=== PATIENT | male | born 1940 | race Caucasian/White ===

== ENCOUNTER 2016-07-16 18:23 | Observation (INO) | payer MEDICARE, BC ==
[2016-07-16 18:55] LABS: ALBUMIN 4.3 g/dL (3.5-5.0); ALKALINE PHOSPHATASE 66 U/L (38-126); ALT 39 U/L (21-72); AST 23 U/L (17-59); BILIRUBIN, DIRECT 0.5 mg/dL (0.0-0.4); BILIRUBIN, TOTAL 1.6 mg/dL (0.2-1.3); BLOOD UREA NITROGEN 30 mg/dL (9-20); CALCIUM 9.3 mg/dL (8.4-10.2); CHLORIDE 109 mmol/L (98-107); CREATININE 1.2 mg/dL (0.7-1.3); EST GLOMERULAR FILTRATION RATE > 60 mL/min; LIPASE 31 U/L (23-300); POTASSIUM 4.4 mmol/L (3.5-5.1); SODIUM 143 mmol/L (137-145); TOTAL PROTEIN 7.3 g/dL (6.3-8.2)
[2016-07-16] MEDS ORDERED: ONDANSETRON HCL 4 MG/2 ML VIAL ONE (18:57)
[2016-07-16 19:02] LABS: GLUCOSE 205 mg/dL (70-100)
[2016-07-16 19:14] LABS: HEMATOCRIT 57.1 % (42.0-54.0); HEMOGLOBIN 19.6 g/dL (14.0-18.0); MEAN CELL VOLUME 89.1 fL (80.0-100.0); MEAN CORPUS. HGB CONCENTRATION 34.3 g/dL (32.0-36.0); MEAN CORPUSCULAR HEMOGLOBIN 30.5 pg (29.0-35.0); MEAN PLATELET VOLUME 9.4 fL (7.4-10.4); PLATELET COUNT 131 X 10^3uL (130-440); RED BLOOD COUNT 6.41 X 10^6uL (4.20-6.10); RED CELL DISTRIBUTION WIDTH 13.6 % (11.5-14.5); WHITE BLOOD COUNT 9.3 X 10^3uL (3.9-10.7)
[2016-07-16 19:19] LABS: BAND% (Manual) 27 % (0.0-1.0); LYMPHOCYTE % (Manual) 1 % (20.0-40.0); MONOCYTE % (Manual) 4 % (2.0-10.0); NEUTROPHIL % (Manual) 68 % (54.0-75.0); PLATELET ESTIMATE ADEQUATE
[2016-07-16] MEDS ORDERED: IPRATROPIUM/ALBUTEROL 0.5/3 MG 3 ML AMPUL.NEB INHALATION ONE (19:46)
--- NOTE | 2016-07-16 21:45 | CT REPORT ---
HISTORY: Weakness, shortness of breath, and elevated D dimer. COMPARISON: None. TECHNIQUE: This examination was performed using automated exposure control, adjustment of mA or kV according to patient size, and/or use of iterative reconstruction technique. Contrast enhanced axial CT images of the chest were performed following the intravenous administration of 100 cc of Isovue-370. FINDINGS: The examination is limited due to motion artifact. Lungs: The lungs are hypoinflated. There is partial atelectasis in the lower lobes and minimal depen dent atelectasis in the upper lobes. There is a small ill-defined nodule in the anterior right upper lobe (image 24 series 5 and image 47 series 7) these measuring up to 5 mm in diameter. There are smal l calcified granulomas in both lungs. Trachea and bronchi: Patent with no evidence of bronchiectasis. Pleural space: No pleural effusion or pleural thickening. Kerri: No adenopathy or bronchovascular thickening. Mediastinum: No mass or adenopathy. Axilla: No adenopathy. Heart and great vessels: Normal. Limited images through the upper abdomen: Normal. Osseous structures: There are degenerative changes in the thoracic spine. There is fusion in the low er cervical spine which is incompletely imaged. There are degenerative changes involving the shoulder s. IMPRESSION: 1. Limited examination due to motion artifact. 2. Hypoventilatory changes with partial atelectasis in the lower lobes and minimal dependent atelect asis in the upper lobes. 3. Small right upper lobe pulmonary nodule. Recommend comparison with prior outside CT if available to document stability. Otherwise, recommend 6-12 month follow-up chest CT. The above findings were communicated to RUIZ LO MD at 07/16/2016 9:40 PM. Final Electronic Signature: This report was electronically signed by Chalo Pitts MD on 07/16/2016 9 :43 PM. jasvir /
[2016-07-16] MEDS ORDERED: HOME MEDICATION LIST NEEDED 1 EA EACH MISC ONE (22:10)
--- NOTE | 2016-07-16 23:16 | ER PHYSICIAN DOCUMENTATION ---
Physician Documentation [facility] Name:Kian Franz Age:76 yrs Sex:Male :1940 Arrival Date:07/16/2016 Time:18:23 Bed4 Private MD:Nitin Davies ED, Chris Disposition: 07/16/16 22:08 Admit ordered for Kyle Damon. Preliminary diagnosis are Dehydration, Gastroenteritis; Viral, Hypoxia - : 2nd to hypoventilation and Atalectasis, Dementia. - Bed requested for Medical/Surgical. - Condition is Fair. - Problem is new. - Symptoms have improved. 23 HR OBS Yes HPI: 07/16 18:30 This 76 yrs old Male presents to ER via Private Vehicle with complaints of cd General Weakness, diarrhea,vomiting, dehydration and decreased mental status. 18:30 The patient is a 76 yo male with Dementia who has had 2 - 3 bouts of diarrhea, multiple cd episodes of vomiting, has become dehydrated. She was brought to the ED by his and son. I helped him into a wheelchair, out of the car, he was pale, very weak with decreased alertness. His initial systolic BP was 116 in the ED. An IV was started and IV fluids of NS given as a bolus.. 18:35 Onset: The symptom(s)/episode began/occurred gradually, this morning. Severity of cd symptoms: At their worst the symptoms were severe in the emergency department the symptoms are unchanged. The patient has not experienced similar symptoms in the past. The patient has not recently seen a physician. 18:40 Patient denies chest pain, SOB, cough, high fever or chills, UTI symptoms, Abdominal cd pain, severe headache or flank pain. He has had no melena, hematochezia or hematemesis.. Historical: - Allergies: Requip; - Home Meds: 1. Namenda oral 2. Clonazepam Oral 3. gabapentin oral 4. Naproxen Oral 5. Diphenhydramine Oral - PMHx: KIDNEY STONES; generalized weakness; fatty liver; falls; neuropathy; DEMENTIA; restless legs; - PSHx: laminectomy; back and neck surgeries; - Tetanus: < 10 years. - Ebola Screening: : Patient negative for fever greater than or equal to 101.5 degrees Fahrenheit, and additional compatible Ebola Virus Disease symptoms. Patient denies exposure to infectious person. Patient denies travel to an Ebola-affected area in the 21 days before illness onset. No symptoms or risks identified at this time. . - Social history: Smoking status: Patient states was never smoker of tobacco. - Immunization history: Flu Vaccine < 1 year. ROS: 19:05 Back: Negative for injury, pain or muscle spasms. cd : Negative for injury, bleeding, discharge, swelling, dysuria, frequency or urgency. 19:05 MS/Extremity: Negative for injury, deformity, edema, calf tenderness, pain or coldness. cd 19:05 Constitutional: Positive for fatigue, malaise, poor PO intake, Negative for body aches, chills, fever. 19:05 Cardiovascular: Negative for chest pain, orthopnea, palpitations. 19:05 Respiratory: Negative for cough, hemoptysis, shortness of breath, sputum production, wheezing. 19:05 Abdomen/GI: Positive for nausea, vomiting, diarrhea, anorexia, Negative for abdominal pain, abdominal distension, hematemesis, black/tarry stool, rectal bleeding. 19:05 Skin: Positive for pallor. 19:05 Neuro: Positive for altered mental status, weakness, Negative for headache, loss of consciousness, speech changes, syncope, near syncope, visual changes. 19:05 All other systems are negative. Exam: Head/Face: Normocephalic, atraumatic. 19:15 Eyes: Pupils equal round and reactive to light, extra-ocular motions intact. Lids and cd lashes normal. Conjunctiva and sclera are non-icteric and not injected. Cornea within normal limits. Periorbital areas with no swelling, redness, or edema. Back: No spinal tenderness. No costovertebral tenderness. Full range of motion. 19:15 MS/ Extremity: Pulses equal, no cyanosis. Neurovascular intact. Full, normal range of motion. 19:15 Constitutional: The patient appears awake, non-diaphoretic, non-toxic, well developed, well nourished, lethargic, listless, obese, pale. 19:15 ENT: TM's: are normal, Mouth: Lips: dry, Oral mucosa: dry. 19:15 Neck: Exam negative for acute changes. 19:15 Cardiovascular: Rate: tachycardic, Rhythm: regular, Pulses: no pulse deficits are appreciated, Heart sounds: normal, Edema: is not appreciated. 19:15 Respiratory: the patient does not display signs of respiratory distress, Respirations: labored breathing, is not present, accessory muscle usage, is absent, intercostal retractions, are absent, shallow respirations, that is moderate, tachypnea, that is moderate, Breath sounds: rales, are not appreciated, rhonchi, are not appreciated, wheezing, is not appreciated, decreased breath sounds, that are moderate, are located in both bases. 19:15 Abdomen/GI: Inspection: abdomen appears normal, Bowel sounds: normal, active, Palpation: abdomen is soft and non-tender, mass, is not appreciated, rebound tenderness, is not appreciated, voluntary guarding, is not appreciated, involuntary guarding, is not appreciated, no appreciated organomegaly, Rectal exam: the exam is deferred, Indicators: McBurney's point is not tender, Aguirre's sign is negative. 19:15 Skin: Appearance: Color: pale. 19:15 Neuro: Orientation: unable to test, the patient has a history of dementia, Mentation: lucid, slow to respond, confused, Memory: unable to test, the patient has a history of dementia, Cranial nerves: CN II- XII are normal as tested, Motor: moves all fours, Sensation: unable to test, the patient has a history of dementia, Gait: not tested. Vital Signs: 18:35 Temp 98.8(O); tg 18:35 BP 116 / 82; Pulse 94; Resp 32; Pulse Ox 93% on 3 lpm NC; Weight 81.65 kg (R); Height 5 tg ft. 8 in. (172.72 cm) (R); Pain 3/10; 19:12 BP 106 / 69; Pulse 102; Pulse Ox 88% on NC; ma 19:55 BP 111 / 72; Pulse 100; Resp 24; Pulse Ox 91% on 3 lpm NC; Pain 0/10; rs 18:35 Body Mass Index 27.37 (81.65 kg, 172.72 cm) tg 18:35 pain in head and shoulders tg Onsted Coma Score: 19:15 Eye Response: spontaneous(4). Verbal Response: confused(4). Motor Response: obeys cd commands(6). Total: 14. MDM: 18:35 Data interpreted: Pulse oximetry: on room air is 86 %. Interpretation: hypoxia. Plan: cd O2 by NC applied. 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 18:36 Patient medically screened. cd 18:50 Differential Diagnosis altered mental status, sepsis, flu, Severe Dehydration, UTI, cd Gastroenteritis. 19:08 ECG:. Response to treatment: the patient's symptoms have markedly improved after cd treatment, the patient's condition has returned to base line, patient is well hydrated. and as a result, I will admit patient, Patient's CTA of the Chest revealed bibasilar atelectasis, No PE's, RUL nodule (there on a previous CT scan of 07/03/2008, no infiltrates. Physician consultation: Kyle Damon MD was called at 21:45, was contacted at 21:45, regarding admission, to the floor, consult, patient's condition, and will see patient in inpatient room, tomorrow. Admission orders: after a detailed discussion of the patient's condition and case, the admit orders are written by me. 19:15 Data reviewed: vital signs, nurses notes, old medical records, EKG, radiologic studies, cd plain films, and as a result, I will continue to observe the patient, administer IV fluids, NS bolus, NS maintenence, Oxygen and Zofran for nausea. 21:45 Counseling: I had a detailed discussion with the patient and/or guardian regarding: the cd historical points, exam findings, and any diagnostic results supporting the discharge/admit diagnosis, lab results, radiology results, the need for further work-up and treatment in the hospital. 07/17 03:16 EKG attached ma 07/16 19:13 Order name: BASIC METABOLIC PANEL; Complete Time: 19:31 EDMS 07/16 19:30 Interpretation: Normal Except: CARBON DIOXIDE 19; GLUCOSE 205; BLOOD UREA NITROGEN 30; cd Metabolic Acidosis, Hyperglycemia, Dehydration. 07/16 19:13 Order name: HEPATIC PANEL; Complete Time: 19:31 EDMS 07/16 19:30 Interpretation: Normal Except: BILIRUBIN, TOTAL 1.6; BILIRUBIN, DIRECT 0.5. cd 07/16 19:13 Order name: LIPASE; Complete Time: 19:31 EDMS 07/16 19:30 Interpretation: Normal. cd 07/16 19:15 Order name: CBC W/ MANUAL DIFFERENTIAL; Complete Time: 19:31 EDMS 07/16 19:31 Interpretation: Normal Except: HEMOGLOBIN 19.6; HEMATOCRIT 57.1; BAND% (Manual) 27; cd Polcythemia, Dehydration, Bandemia. 07/16 20:08 Order name: DDIMER; Complete Time: 20:14 EDMS 07/16 20:14 Interpretation: Abnormal: DDIMER 490; Elevated. cd 07/16 21:46 Order name: CAT SCAN; CHEST ANGIO 60155; Complete Time: 10:47 EDMS 07/16 18:37 Order name: EKG - 12 Lead; Complete Time: 19:03 cd 07/16 18:40 Order name: FSBS; Complete Time: 18:41 tg EC/18 19:08 Rate is 101 beats/min. Rhythm is regular. [place] interval is normal. QRS interval is cd normal. QT interval is normal. Q waves are Present in leads III, aVF. T waves are Normal. No ST changes noted. Clinical impression: Anterior NV - age indeterminate, Inferior NV - age indeterminate, and Poor Anterior R-wave Progression. Interpreted by me. Dispensed Medications: 18:34 Drug: NS 0.9% 1000 ml; Route: IV; Rate: bolus; Site: left forearm; Delivery: [place] tg Tubing; 18:59 Follow up: IV Status: Completed infusion; IV Intake: 1000ml tg 18:52 Drug: Zofran 4 mg; Route: IVP; Infused Over: 2 mins; Site: left forearm; tg 18:59 Follow up: Response: No adverse reaction; Nausea is decreased tg 20:00 Drug: DuoNeb (Albuterol 2.5 mg, Atrovent 0.5 mg); 3 ml; Route: Nebulizer; Infused Over: rs 8 mins; 20:00 Drug: NS 0.9% 1000 ml; Volume: 1000 ml; Route: IV; Rate: 1000 bolus; Site: left wrist; rs Delivery: [place]on Tubing; Point of Care Testing: Blood Glucose: 18:43 Blood Glucose: 215 mg/dL; tg Ranges: Critical Glucose Levels:Adult <50 mg/dl or >400 mg/dl <40 mg/dl or >180 mg/dl Signatures: Justus Roy RN RN tg Yuliya Nur RN RN rs Allison Hopkins RN RN ma Daley, Chris, MD MABRY cd
--- NOTE | 2016-07-16 23:16 | ER NURSING DOCUMENTATION ---
Nurse's Notes [facility] Name:Kian Franz Age:76 yrs Sex:Male :1940 Arrival Date:07/16/2016 Time:18:23 Bed4 Private MD:Nitin Davies Diagnosis:Dehydration;Gastroenteritis; Viral;Hypoxia-: 2nd to hypoventilation and Atalectasis;Dementia Presentation: 07/16 18:25 Acuity: JAXON 2 tg 18:45 Presenting complaint: Patient states: Weak, dizzy, N/V/D. Transition of care: patient tg was not received from another setting of care. 18:45 Method Of Arrival: Private Vehicle tg 20:12 Notified ED Physician of D dimer 490. rs Triage Assessment: 18:41 General: Appears ill, Behavior is cooperative. Pain: Complains of pain in "head and tg shoulders. Neuro: Level of Consciousness is lethargic, Oriented to person, place, Weakness Gait is unsteady, Speech Reports dizziness, weakness. Cardiovascular: Capillary refill < 3 seconds. Respiratory: Airway is patent Respiratory effort is even, unlabored. GI: Reports diarrhea, nausea, vomiting. Derm: Skin is dry, Skin is pale, Skin temperature is warm. Historical: - Allergies: Requip; - Home Meds: 1. Namenda oral 2. Clonazepam Oral 3. gabapentin oral 4. Naproxen Oral 5. Diphenhydramine Oral - PMHx: KIDNEY STONES; generalized weakness; fatty liver; falls; neuropathy; DEMENTIA; restless legs; - PSHx: laminectomy; back and neck surgeries; - Tetanus: < 10 years. - Ebola Screening: : Patient negative for fever greater than or equal to 101.5 degrees Fahrenheit, and additional compatible Ebola Virus Disease symptoms. Patient denies exposure to infectious person. Patient denies travel to an Ebola-affected area in the 21 days before illness onset. No symptoms or risks identified at this time. . - Social history: Smoking status: Patient states was never smoker of tobacco. - Immunization history: Flu Vaccine < 1 year. Screenin:43 Infectious Disease Risk Unable to Obtain. Abuse screen: Denies threats or abuse. Denies tg injuries from another. Nutritional screening: No deficits noted. Vital Signs: 18:35 Temp 98.8(O); tg 18:35 BP 116 / 82; Pulse 94; Resp 32; Pulse Ox 93% on 3 lpm NC; Weight 81.65 kg (R); Height 5 tg ft. 8 in. (172.72 cm) (R); Pain 3/10; 19:12 BP 106 / 69; Pulse 102; Pulse Ox 88% on NC; ma 19:55 BP 111 / 72; Pulse 100; Resp 24; Pulse Ox 91% on 3 lpm NC; Pain 0/10; rs 18:35 Body Mass Index 27.37 (81.65 kg, 172.72 cm) tg 18:35 pain in head and shoulders tg Kristine Coma Score: 19:15 Eye Response: spontaneous(4). Verbal Response: confused(4). Motor Response: obeys cd commands(6). Total: 14. ED Course: 18:24 Patient arrived in ED. ama 18:24 Nitin Davies MD is Private Physician. ama 18:25 Justus Roy RN is Primary Nurse. tg 18:25 Triage completed. tg 18:35 Inserted peripheral IV: 20 gauge in left forearm and blood collected. Oxygen Oxygen tg administration via nasal cannula @ 3L/min. 18:36 Vicente García MD is Attending Physician. cd 18:43 Arm band placed on Bed in low position Call Light in Reach Gowned Side rails up x2. tg Family accompanied patient. 18:45 Valuables Remains with patient. Pulse Ox - RN Monitoring Only. tg 18:56 Port Xray Completed. pm1 19:06 Report given to NICHOLAS Feliz. tg 20:[address] pm1 21:[address]. pm1 22:07 Kyle Damon MD is Admitting Physician. cd 03 03:16 EKG attached ma Administered Medications: 18 18:34 Drug: NS 0.9% 1000 ml; Route: IV; Rate: bolus; Site: left forearm; Delivery: [place] tg Tubing; 18:59 Follow up: IV Status: Completed infusion; IV Intake: 1000ml tg 18:52 Drug: Zofran 4 mg; Route: IVP; Infused Over: 2 mins; Site: left forearm; tg 18:59 Follow up: Response: No adverse reaction; Nausea is decreased tg 20:00 Drug: DuoNeb (Albuterol 2.5 mg, Atrovent 0.5 mg); 3 ml; Route: Nebulizer; Infused Over: rs 8 mins; 20:00 Drug: NS 0.9% 1000 ml; Volume: 1000 ml; Route: IV; Rate: 1000 bolus; Site: left wrist; rs Delivery: [place] Tubing; Point of Care Testing: Blood Glucose: 18:43 Blood Glucose: 215 mg/dL; tg Ranges: Intake: 18:59 IV: 1000ml; Total: 1000ml. tg Outcome: 21:57 Instructed on Incentive Spirometer fc 22:08 Decision to Admit by Provider. cd 23:14 Admitted to Med/surg ma 23:14 Condition: unchanged 23:14 Report given to Report given to tree chipper by Dr García PT not seen by this RN 23:15 Patient left the ED. dang Signatures: Justus Roy RN RN tg Stalker, Rachael, NICHOLAS RN rs Allison Hopkins RN RN Vicente Corrigan MD MD cd McBride, Philisha pm1 Bijan Sanches, kathy Childress
[2016-07-16] MEDS: NORMAL SALINE 1,000 ML IV SCH (23:20)
[2016-07-16] MEDS: IPRATROPIUM/ALBUTEROL 0.5/3 MG 3 ML AMPUL.NEB INHALATION SCH (23:20)
[2016-07-16] MEDS ORDERED: O2 HUMIDIFIER 650 ML BOTTLE INHALATION ONE (23:41)
[2016-07-17 01:06] LABS: URINE APPEARANCE CLEAR; URINE COLOR YELLOW; URINE GLUCOSE NORMAL (NEGATIVE); URINE LEUKOCYTE ESTERASE NEGATIVE (NEGATIVE); URINE NITRITE NEGATIVE (NEGATIVE); URINE PROTEIN NEGATIVE (NEG - TRACE); URINE SPECIFIC GRAVITY 1.015 (0.001-1.035)
[2016-07-17 01:07] LABS: URINE BILIRUBIN NEGATIVE (NEGATIVE); URINE BLOOD 50 Ery/uL (2+) (NEGATIVE); URINE KETONE 10mg/dL (1+) (NEGATIVE); URINE UROBILINOGEN 0.2mg/dL (Normal) (NEG-1mg/dL)
[2016-07-17 01:11] LABS: URINE WBC 0-4/hpf (0-4/hpf)
[2016-07-17 01:12] LABS: URINE BACTERIA <10 ORGANISMS/hpf (<10/hpf); URINE MUCUS UP TO 25%/lpf (Up to 25%); URINE SQUAMOUS EPITHELIAL CELL 0-5/hpf (<= 15/hpf)
[2016-07-17] MEDS: ACETAMINOPHEN 325 MG TABLET PO PRN ×3 (02:17→16:53)
[2016-07-17] MEDS: IPRATROPIUM/ALBUTEROL 0.5/3 MG 3 ML AMPUL.NEB INHALATION SCH ×4 (05:42→22:11)
[2016-07-17 07:22] LABS: BLOOD UREA NITROGEN 31 mg/dL (9-20); CALCIUM 7.8 mg/dL (8.4-10.2); CHLORIDE 108 mmol/L (98-107); CREATININE 1.1 mg/dL (0.7-1.3); EST GLOMERULAR FILTRATION RATE > 60 mL/min; GLUCOSE 131 mg/dL (70-100); POTASSIUM 3.9 mmol/L (3.5-5.1); SODIUM 139 mmol/L (137-145)
[2016-07-17 07:41] LABS: HEMOGLOBIN 17.1 g/dL (14.0-18.0); MEAN CELL VOLUME 89.2 fL (80.0-100.0); MEAN CORPUS. HGB CONCENTRATION 33.6 g/dL (32.0-36.0); MEAN PLATELET VOLUME 9.4 fL (7.4-10.4); PLATELET COUNT 125 X 10^3uL (130-440); RED BLOOD COUNT 5.72 X 10^6uL (4.20-6.10); RED CELL DISTRIBUTION WIDTH 13.9 % (11.5-14.5); WHITE BLOOD COUNT 6.8 X 10^3uL (3.9-10.7)
[2016-07-17 07:42] LABS: BAND% (Manual) 26 % (0.0-1.0); LYMPHOCYTE % (Manual) 3 % (20.0-40.0); MONOCYTE % (Manual) 3 % (2.0-10.0); NEUTROPHIL % (Manual) 68 % (54.0-75.0); PLATELET ESTIMATE DECREASED
[2016-07-17] MEDS ORDERED: NAPROXEN 250 MG TABLET PO PRN (10:06)
[2016-07-17] MEDS: GABAPENTIN 300 MG CAPSULE PO SCH ×2 (10:55→21:57)
[2016-07-17] MEDS: AMPICILLIN/SULBACTAM 1.5 GM in NORMAL SALINE MINI-BAG+ 100 ML IV SCH ×3 (10:55→21:58)
[2016-07-17] MEDS: ONDANSETRON ODT 4 MG TAB.RAPDIS PO PRN (10:55)
[2016-07-17] MEDS ORDERED: NORMAL SALINE 1,000 ML IV SCH (11:00)
[2016-07-17] MEDS ORDERED: POLYVINYL ALCOHOL 1.4% OPHTH 75 DROP/15 ML BTL OPHTHALMIC PRN (11:55)
[2016-07-17] MEDS: NORMAL SALINE 1,000 ML IV SCH ×2 (12:04→23:46)
[2016-07-17] MEDS ORDERED: PHENOL SPRAY 1 SPRAY/ML BTL MUCOUS MEM PRN (16:43)
--- NOTE | 2016-07-17 18:42 | HISTORY & PHYSICAL ---
DATE OF ADMISSION: 07/16/16 ATTENDING PHYSICIAN: Kyle Damon MD ADMITTING PHYSICIAN: Aditya García MD PRIMARY CARE PHYSICIAN: Nitin Davies MD (Patient does have follow up on Monday of this week with Dr. Davies). HISTORY OF PRESENT ILLNESS: The patient is a 76-year-old gentleman with significant orthopedic past history as well as recent diagnosis of dementia with some aggression. He has a history of sleep apnea with nocturnal hypoxemia and was to use oxygen at night, though intermittently declines, as well as a history of melanoma and prior kidney stones. It was noted previously on colonoscopy, that he did have diverticular disease. He presents on this occasion with acute onset of vomiting, initially food that he had eaten and then subsequently a caramel-colored emesis every 10-15 minutes. He then developed vague abdominal discomfort, and then perfuse diarrhea but without blood or mucous. He also complained of fever and headache and was seen in the Emergency Room. In the Emergency Room, they noted he was tachycardic and hypoxic , and started nebulizers and oxygen with improvement in his oxygenation, but his tummy pain persisted as well as some nausea and no further emesis. This morning, he was able to tolerate some breakfast, but notes feeling very queasy and nauseated after eating. He has had no cough, cold, congestion. No paroxysmal nocturnal dyspnea. No orthopnea. He has had no dysuria or urinary frequency. No sore throat. He has a frontal headache and improves after Tylenol. No change in vision though has had prior cervical diskectomies and fusion therapies. He has not had nuchal rigidity. There is no chest pain or palpitations. In the Emergency Room, his initial white count was 9.3, hemoglobin 19.6, with an MCV of 89 and a platelet count of 131. He had 27% bands and 68% neutrophils. This morning a repeat CBC shows white count of 6.8 and platelet count of 125 with hemoglobin of 17.1. The differential largely remains 68% neutrophils with 26% bands. Chemistries show BUN of 31 with creatinine of 1.1, glucose of 131 and calcium of 7.8. Remainder of electrolytes are within normal limits. Urinalysis showed ketones and blood but no white cells and leukocyte esterase was negative. A D-dimer was elevated at 490 but age corrected is appropriate. CT thorax has been obtained and showed limited examination due to patients movement with atelectasis in the lower lobes, a small right upper lobe pulmonary nodule as well. PAST MEDICAL HISTORY 1. Prior aspiration. Patient required a PEG tube for 1 year which was removed in 2012. 2. Dementia with aggression. Most recent Mini-Mental Status Exam was in 06/2016. 3. Elevated uric acid, query gout. 4. Fatty liver. 5. Gait instability. 6. Prior H. pylori infection. 7. Persistent hematuria after history of nephrolithiasis and lithotripsy. 8. Melanoma of his left forearm. 9. Bilateral lower extremity neuropathy, felt related to cervical and lumbar radiculopathy. 10. Restless leg syndrome, intolerant to Requip. 11. Untreated sleep apnea. PAST SURGICAL HISTORY 1. C3-C4 diskectomy with right leg paresthesia. 2. C3-C6 cervical fusion [address] Venegas. 3. Lumbar spinal stenosis surgery [place] [address] Venegas L2-L4. 4. An L2 laminectomy. 5. Prior open reduction, internal fixation of left clavicle. 6. Tonsillectomy. ALLERGIES: Allergic to Requip. FAMILY HISTORY: He was adopted. He had a father, brother and mother that suffered from alcoholism. SOCIAL HISTORY: He drinks rarely. He is and has 3 children. 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 Interestingly, he had done his undergraduate at [employer] and is still an avid basketball fan. He had done Masters level work in Divinity with a Theology degree from [employer] prior to pursuing a PhD in Philosophy at the [employer]. During his time in [place], his parents and brother were involved in a car accident and . 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 REVIEW OF SYSTEMS: Per history of present illness. MEDICATIONS Aspirin 81 mg daily. Klonopin 1 mg daily as needed, usually at night. Gabapentin 900 mg twice daily. Namenda XR titration pack currently on 14 mg daily. Naproxen sodium 220 mg daily. PHYSICAL EXAMINATION VITAL SIGNS: His temperatures have ranged 36.9-37.3 since admission with blood pressure in the 90-110/50-60 diastolic range. Heart rate 90s-low 100s with respiratory rate of 16-24. He has been saturating 90-95% on 2-4 liters by nasal cannula. His pain intensity overall is 4-5/10 and predominantly spinal related, although he also has left lower quadrant pain. GENERAL: He is pleasant, somewhat blunted affected. Does smile intermittently. There is no jaundice. No anemia, cyanosis, clubbing or lymphadenopathy appreciated. There are no neck masses. HEENT: Oropharynx is still tacky. CARDIAC: S1, S2 without murmur, though somewhat accentuated pulmonic component in left upper sternal border as well as right upper sternal border, but no radiation or murmurs are appreciated. RESPIRATORY: Air entry to the bases and slightly prolonged expiratory phase, but no polyphonic wheezing noted. ABDOMEN: Generalized distended. Bowel sounds are active. He has no masses over the liver, spleen or kidneys and no costovertebral angle tenderness. He does have guarding over the left lower quadrant and suprapubic region with slight increase for rebound assessment in left lower quadrant but no Rovsing sign. LABORATORY DATA: As above. ASSESSMENT 1. Nausea, vomiting, abdominal pain and diarrhea. This likely represents gastroenteritis and possible food-borne illness but with left lower quadrant tenderness, guarding and mild rebound as we as increase bands on examination and prior colonoscopy with diverticulosis. I do have concerns for diverticulitis. Will start empiric Unasyn with likely transition to Augmentin as an outpatient and more maria c increase in foods. Patient notes after breakfast this morning, marked increase in nausea with no further emesis. I have also requested Zofran for nausea and will consider stool studies with fecal leukocytes and cultures as recent outbreak of Campylobacter locally in [place] as well as recent Listeria from [employer] cheeses noted. 2. Chronic pain. Will continue patient's home iteration of home medications, which markedly attenuate his discomfort from both his cervical and lumbar radiculopathies. 3. Dementia. 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 Will continue his Namenda. His has been present and may help reorient him. 4. Obesity hypoventilation with nocturnal hypoxemia. Have encouraged use of oxygen as this likely will improve his mentation as well. 5. Patient is a full code. Will recommend that he receive fluids and antibiotics as well as advance diet today with likely discharge tomorrow. This will allow us to recheck labs in the morning as well as check stool studies. Patient may warrant postvoid residual and possible repeat urinalysis, though the bulk of his pain is left lower quadrant and with concomitant change in vomiting and bowel movements, may represent diverticular disease. MTDD
[2016-07-17] MEDS: clonazePAM 1 MG TABLET PO SCH (21:57)
[2016-07-17] MEDS: [UNRECOGNIZED DRUG - REMARK] PO SCH (21:57)
[2016-07-18] MEDS: AMPICILLIN/SULBACTAM 1.5 GM in NORMAL SALINE MINI-BAG+ 100 ML IV SCH ×4 (03:49→23:01)
[2016-07-18] MEDS: IPRATROPIUM/ALBUTEROL 0.5/3 MG 3 ML AMPUL.NEB INHALATION SCH (05:16)
[2016-07-18] MEDS: GABAPENTIN 300 MG CAPSULE PO SCH ×2 (08:36→20:40)
[2016-07-18] MEDS ORDERED: ACETAMINOPHEN 325 MG TABLET PO ONE (08:45)
[2016-07-18 09:41] LABS: BASOPHILS 0.1 % (0.0-2.0); EOSINOPHILS 1.4 % (0.0-6.0); EOSINOPHILS# 0.1 X 10^3uL (0.0-0.4); HEMATOCRIT 49.1 % (42.0-54.0); HEMOGLOBIN 16.7 g/dL (14.0-18.0); LYMPHOCYTES# 0.8 X 10^3uL (0.8-3.8); MEAN CELL VOLUME 89.5 fL (80.0-100.0); MEAN CORPUSCULAR HEMOGLOBIN 30.5 pg (29.0-35.0); MEAN PLATELET VOLUME 9.1 fL (7.4-10.4); MONOCYTES 13.9 % (2.0-10.0); MONOCYTES# 0.6 X 10^3uL (0.2-1.0); NEUTROPHILS 66.6 % (54.0-75.0); PLATELET COUNT 102 X 10^3uL (130-440); RED BLOOD COUNT 5.48 X 10^6uL (4.20-6.10); RED CELL DISTRIBUTION WIDTH 14.1 % (11.5-14.5); WHITE BLOOD COUNT 4.5 X 10^3uL (3.9-10.7)
--- NOTE | 2016-07-18 09:45 | PROGRESS NOTE: IM APSO ---
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 Elements of disorientation, confusion, etc. Pt has no recall why he is in hospital, that he had diarrhea. Confabulates. Spoke with who feels that he will do better in the home setting. Feels safe still in home with patient. 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 has resources if she does not feel safe. We will need to consider Alzheimers lockdown unit if worsens. Cardiovascular: no chest pain Respiratory: no SOB Gastrointestinal: no abdominal pain, no nausea, no vomiting, no diarrhea IM: PN Objective Exam - I&O/Vital Signs I&O: Intake & Output 07/17/16 07/18/16 07/18/16 21:59 05:59 13:59 Intake Total 680 Output Total 475 Balance 205 Intake: Oral 680 Output: Urine 475 Other: Urine Appearance Clear Clear Urine Color Light Liana Light Liana Voiding Method Toilet Toilet # Voids 5 Vital Signs: Last Vital Signs Temp 37.0 C 07/17/16 23:00 Pulse 94 H 07/17/16 23:00 Resp 20 07/18/16 09:00 BP 121/64 07/17/16 23:00 Pulse Ox 92 07/18/16 09:04 Oxygen Flow Rate 3 Oxygen Delivery Method Room Air - Respiratory Respiratory exam: Present: clear - Cardiovascular Cardiovascular exam: Present: RRR. Absent: systolic murmur - GI/Abdominal GI/Abdominal exam: Present: normal bowel sounds, soft. Absent: organomegaly, tenderness - Extremities Exam Extremities exam: Absent: edema - Lab Labs: Laboratory Last Values WBC 6.8 X 10^3uL (3.9-10.7) 07/17/16 06:40 RBC 5.72 X 10^6uL (4.20-6.10) 07/17/16 06:40 Hgb 17.1 g/dL (14.0-18.0) 07/17/16 06:40 Hct 51.0 % (42.0-54.0) 07/17/16 06:40 MCV 89.2 fL (80.0-100.0) 07/17/16 06:40 MCH 30.0 pg (29.0-35.0) 07/17/16 06:40 MCHC 33.6 g/dL (32.0-36.0) 07/17/16 06:40 RDW 13.9 % (11.5-14.5) 07/17/16 06:40 Plt Count 125 X 10^3uL (130-440) L 07/17/16 06:40 MPV 9.4 fL (7.4-10.4) 07/17/16 06:40 Total Counted 100 07/17/16 06:40 Neutrophils % Cancelled 07/16/16 18:30 Neutrophils % (Manual) 68 % (54.0-75.0) 07/17/16 06:40 Band Neuts % (Manual) 26 % (0.0-1.0) H 07/17/16 06:40 Lymphocytes % Cancelled 07/16/16 18:30 Lymphocytes % (Manual) 3 % (20.0-40.0) L 07/17/16 06:40 Monocytes % (Manual) 3 % (2.0-10.0) 07/17/16 06:40 Eosinophils % Cancelled 07/16/16 18:30 Basophils % Cancelled 07/16/16 18:30 Neutrophils # Cancelled 07/16/16 18:30 Lymphocytes # Cancelled 07/16/16 18:30 Monocytes Cancelled 07/16/16 18:30 Monocytes # Cancelled 07/16/16 18:30 Eosinophils # Cancelled 07/16/16 18:30 Basophils # Cancelled 07/16/16 18:30 Platelet Estimate Decreased 07/17/16 06:40 D-Dimer 490 ng/mL H* 07/16/16 18:30 Sodium 139 mmol/L (137-145) 07/17/16 06:40 Potassium 3.9 mmol/L (3.5-5.1) 07/17/16 06:40 Chloride 108 mmol/L (98-107) H 07/17/16 06:40 Carbon Dioxide 22 mmol/L (22-30) 07/17/16 06:40 BUN 31 mg/dL (9-20) H 07/17/16 06:40 Creatinine 1.1 mg/dL (0.7-1.3) 07/17/16 06:40 GFR Calculation > 60 mL/min 07/17/16 06:40 Glucose 131 mg/dL (70-100) H 07/17/16 06:40 Calcium 7.8 mg/dL (8.4-10.2) L 07/17/16 06:40 Total Bilirubin 1.6 mg/dL (0.2-1.3) H 07/16/16 18:30 Direct Bilirubin 0.5 mg/dL (0.0-0.4) H 07/16/16 18:30 AST 23 U/L (17-59) 07/16/16 18:30 ALT 39 U/L (21-72) 07/16/16 18:30 Alkaline Phosphatase 66 U/L (38-126) 07/16/16 18:30 Total Protein 7.3 g/dL (6.3-8.2) 07/16/16 18:30 Albumin 4.3 g/dL (3.5-5.0) 07/16/16 18:30 Lipase 31 U/L (23-300) 07/16/16 18:30 Urine Color Yellow 07/16/16 22:30 Urine Appearance Clear 07/16/16 22:30 Urine pH 5.0 (5-7) 07/16/16 22:30 Ur Specific [place] 1.015 (0.001-1.035) 07/16/16 22:30 Urine Protein Negative (NEG - TRACE) 07/16/16 22:30 Urine Ketones 10mg/dl (1+) (NEGATIVE) A 07/16/16 22:30 Urine Blood 50 avis/ul (2+) (NEGATIVE) A 07/16/16 22:30 Urine Nitrate Negative (NEGATIVE) 07/16/16 22:30 Urine Bilirubin Negative (NEGATIVE) 07/16/16 22:30 Urine Urobilinogen 0.2mg/dl (normal) (NEG-1mg/dL) 07/16/16 22:30 Ur Leukocyte Esterase Negative (NEGATIVE) 07/16/16 22:30 Urine RBC 10-25/hpf (0-5/hpf) 07/16/16 22:30 Urine WBC 0-4/hpf (0-4/hpf) 07/16/16 22:30 Ur Squamous Epith Cells 0-5/hpf (<= 15/hpf) 07/16/16 22:30 Urine Bacteria <10 organisms/hpf (<10/hpf) 07/16/16 22:30 Hyaline Casts 0-2/lpf (0-5/lpf) 07/16/16 22:30 Urine Mucus Up to 25%/lpf (Up to 25%) 07/16/16 22:30 Urine Glucose Normal (NEGATIVE) 07/16/16 22:30 Quality Questions - VTE Prophylaxis Assessment VTE Present on Admission?: No Patient at risk for venous thromboembolism?: No VTE Risk Level: Very Low Risk
[2016-07-18 11:02] LABS: BLOOD UREA NITROGEN 20 mg/dL (9-20); CALCIUM 7.7 mg/dL (8.4-10.2); CHLORIDE 108 mmol/L (98-107); EST GLOMERULAR FILTRATION RATE > 60 mL/min; GLUCOSE 92 mg/dL (70-100); SODIUM 139 mmol/L (137-145); THYROID STIMULATING HORMONE 5.14 uIU/mL (0.47-4.68)
[2016-07-18] MEDS: ONDANSETRON ODT 4 MG TAB.RAPDIS PO PRN (11:37)
[2016-07-18] MEDS: ACETAMINOPHEN 325 MG TABLET PO PRN (14:37)
[2016-07-18] MEDS: NORMAL SALINE 1,000 ML IV SCH (19:53)
[2016-07-18] MEDS ORDERED: NORMAL SALINE 1,000 ML IV ONE (20:00)
[2016-07-18] MEDS: clonazePAM 1 MG TABLET PO SCH (20:40)
[2016-07-18] MEDS: [UNRECOGNIZED DRUG - REMARK] PO SCH (20:40)
[2016-07-19] MEDS: AMPICILLIN/SULBACTAM 1.5 GM in NORMAL SALINE MINI-BAG+ 100 ML IV SCH ×3 (01:36→15:00)
[2016-07-19] MEDS: ACETAMINOPHEN 325 MG TABLET PO PRN ×3 (01:59→19:04)
[2016-07-19 05:45] LABS: BASOPHILS 0.6 % (0.0-2.0); EOSINOPHILS 2.1 % (0.0-6.0); EOSINOPHILS# 0.1 X 10^3uL (0.0-0.4); HEMATOCRIT 48.3 % (42.0-54.0); HEMOGLOBIN 16.3 g/dL (14.0-18.0); LYMPHOCYTES 27.5 % (20.0-40.0); LYMPHOCYTES# 1.4 X 10^3uL (0.8-3.8); MEAN CORPUS. HGB CONCENTRATION 33.8 g/dL (32.0-36.0); MEAN PLATELET VOLUME 9.2 fL (7.4-10.4); MONOCYTES 11.2 % (2.0-10.0); MONOCYTES# 0.6 X 10^3uL (0.2-1.0); NEUTROPHILS 58.6 % (54.0-75.0); PLATELET COUNT 106 X 10^3uL (130-440); RED BLOOD COUNT 5.42 X 10^6uL (4.20-6.10); RED CELL DISTRIBUTION WIDTH 13.7 % (11.5-14.5); WHITE BLOOD COUNT 5.1 X 10^3uL (3.9-10.7)
[2016-07-19 05:52] LABS: BLOOD UREA NITROGEN 16 mg/dL (9-20); CALCIUM 7.8 mg/dL (8.4-10.2); CHLORIDE 107 mmol/L (98-107); CREATININE 0.9 mg/dL (0.7-1.3); EST GLOMERULAR FILTRATION RATE > 60 mL/min; GLUCOSE 90 mg/dL (70-100); POTASSIUM 3.8 mmol/L (3.5-5.1); SODIUM 138 mmol/L (137-145)
[2016-07-19] MEDS: GABAPENTIN 300 MG CAPSULE PO SCH (08:35)
--- NOTE | 2016-07-19 08:52 | PROGRESS NOTE: IM APSO ---
Assessment and Plan - Date of Encounter Date of Encounter: 07/19/16 (1) Acute gastroenteritis Status: Acute Assessment and plan: Worsened yest afternoon with increased GI symptoms. Better this AM. Trial of advancing diet. Not great PO fluids so far. Prb discharge today Current Visit: Yes (2) Dehydration Status: Resolved Assessment and plan: Had to restart IV yest afternoon. Current Visit: Yes (3) Dementia Status: Chronic Assessment and plan: with agitation. 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 Stated he had some oatmeal last night. Pt c/o bifrontal headache, severe. No focal neuro symptoms. No nausea. Did not sleep well last night and is sleepy this AM. Cardiovascular: no chest pain Respiratory: no SOB Gastrointestinal: no abdominal pain, no nausea (Improved this morning), no vomiting, no diarrhea IM: PN Objective Exam - I&O/Vital Signs I&O: Intake & Output 07/18/16 07/19/16 07/19/16 21:59 05:59 13:59 Intake Total 450 730 Output Total 1200 Balance 450 -470 Intake: IV 730 Right Antecubital 730 Oral 450 Output: Urine 1200 Other: Urine Appearance Clear Urine Color Yellow Voiding Method Toilet Toilet # Voids 4 Vital Signs: Last Vital Signs Temp 36.8 C 07/19/16 06:31 Pulse 66 07/19/16 06:31 Resp 16 07/19/16 06:31 BP 141/80 07/19/16 06:31 Pulse Ox 90 07/19/16 06:31 Oxygen Flow Rate 2 Oxygen Delivery Method Nasal Cannula - Respiratory Respiratory exam: Present: clear - Cardiovascular Cardiovascular exam: Present: RRR. Absent: systolic murmur - GI/Abdominal GI/Abdominal exam: Present: normal bowel sounds, soft. Absent: organomegaly, tenderness - Extremities Exam Extremities exam: Absent: edema - Lab Labs: Laboratory Last Values WBC 5.1 X 10^3uL (3.9-10.7) 07/19/16 05:00 RBC 5.42 X 10^6uL (4.20-6.10) 07/19/16 05:00 Hgb 16.3 g/dL (14.0-18.0) 07/19/16 05:00 Hct 48.3 % (42.0-54.0) 07/19/16 05:00 MCV 89.0 fL (80.0-100.0) 07/19/16 05:00 MCH 30.0 pg (29.0-35.0) 07/19/16 05:00 MCHC 33.8 g/dL (32.0-36.0) 07/19/16 05:00 RDW 13.7 % (11.5-14.5) 07/19/16 05:00 Plt Count 106 X 10^3uL (130-440) L 07/19/16 05:00 MPV 9.2 fL (7.4-10.4) 07/19/16 05:00 Total Counted 100 07/17/16 06:40 Neutrophils % 58.6 % (54.0-75.0) 07/19/16 05:00 Neutrophils % (Manual) 68 % (54.0-75.0) 07/17/16 06:40 Band Neuts % (Manual) 26 % (0.0-1.0) H 07/17/16 06:40 Lymphocytes % 27.5 % (20.0-40.0) 07/19/16 05:00 Lymphocytes % (Manual) 3 % (20.0-40.0) L 07/17/16 06:40 Monocytes % (Manual) 3 % (2.0-10.0) 07/17/16 06:40 Eosinophils % 2.1 % (0.0-6.0) 07/19/16 05:00 Basophils % 0.6 % (0.0-2.0) 07/19/16 05:00 Neutrophils # 3.0 X 10^3uL (2.6-6.7) 07/19/16 05:00 Lymphocytes # 1.4 X 10^3uL (0.8-3.8) 07/19/16 05:00 Monocytes 11.2 % (2.0-10.0) H 07/19/16 05:00 Monocytes # 0.6 X 10^3uL (0.2-1.0) 07/19/16 05:00 Eosinophils # 0.1 X 10^3uL (0.0-0.4) 07/19/16 05:00 Basophils # 0.0 X 10^3uL (0.0-0.1) 07/19/16 05:00 Platelet Estimate Decreased 07/17/16 06:40 D-Dimer 490 ng/mL H* 07/16/16 18:30 Sodium 138 mmol/L (137-145) 07/19/16 05:00 Potassium 3.8 mmol/L (3.5-5.1) 07/19/16 05:00 Chloride 107 mmol/L (98-107) 07/19/16 05:00 Carbon Dioxide 22 mmol/L (22-30) 07/19/16 05:00 BUN 16 mg/dL (9-20) 07/19/16 05:00 Creatinine 0.9 mg/dL (0.7-1.3) 07/19/16 05:00 GFR Calculation > 60 mL/min 07/19/16 05:00 Glucose 90 mg/dL (70-100) 07/19/16 05:00 Calcium 7.8 mg/dL (8.4-10.2) L 07/19/16 05:00 Total Bilirubin 1.6 mg/dL (0.2-1.3) H 07/16/16 18:30 Direct Bilirubin 0.5 mg/dL (0.0-0.4) H 07/16/16 18:30 AST 23 U/L (17-59) 07/16/16 18:30 ALT 39 U/L (21-72) 07/16/16 18:30 Alkaline Phosphatase 66 U/L (38-126) 07/16/16 18:30 Total Protein 7.3 g/dL (6.3-8.2) 07/16/16 18:30 Albumin 4.3 g/dL (3.5-5.0) 07/16/16 18:30 Lipase 31 U/L (23-300) 07/16/16 18:30 TSH 5.14 uIU/mL (0.47-4.68) H 07/18/16 05:00 Urine Color Yellow 07/16/16 22:30 Urine Appearance Clear 07/16/16 22:30 Urine pH 5.0 (5-7) 07/16/16 22:30 Ur Specific [place] 1.015 (0.001-1.035) 07/16/16 22:30 Urine Protein Negative (NEG - TRACE) 07/16/16 22: Urine Ketones 10mg/dl (1+) (NEGATIVE) A 07/16/16 22:30 Urine Blood 50 avis/ul (2+) (NEGATIVE) A 07/16/16 22:30 Urine Nitrate Negative (NEGATIVE) 07/16/16 22: Urine Bilirubin Negative (NEGATIVE) 07/16/16 22: Urine Urobilinogen 0.2mg/dl (normal) (NEG-1mg/dL) 07/16/16 22:30 Ur Leukocyte Esterase Negative (NEGATIVE) 07/16/16 22:30 Urine RBC 10-25/hpf (0-5/hpf) 07/16/16 22:30 Urine WBC 0-4/hpf (0-4/hpf) 07/16/16 22:30 Ur Squamous Epith Cells 0-5/hpf (<= 15/hpf) 07/16/16 22:30 Urine Bacteria <10 organisms/hpf (<10/hpf) 07/16/16 22:30 Hyaline Casts 0-2/lpf (0-5/lpf) 07/16/16 22:30 Urine Mucus Up to 25%/lpf (Up to 25%) 07/16/16 22:30 Urine Glucose Normal (NEGATIVE) 07/16/16 22:30
[2016-07-19 11:43] VITALS: O2SAT 90
--- NOTE | 2016-07-19 13:40 | RADIOLOGY REPORT ---
A limited single portable view of the chest is compared the prior film dated . Examination demonstrates a limited degree of inspiration. Considering this the heart and vessels appear unremarkable. Bibasilar atelectasis is noted. No discrete infiltrate, fluid or pneumothorax is seen. IMPRESSION: Limited degree of inspiration with probable bibasilar atelectasis. MTDD
[2016-07-19] MEDS ORDERED: IBUPROFEN 600 MG TABLET PO SCH (14:00)
--- NOTE | 2016-07-19 14:57 | CT REPORT ---
HISTORY: Persistent headache. Evaluate for intracranial hemorrhage. PROCEDURE: Contiguous axial images were acquired from the vertex to the base of the skull without administration of IV contrast. Dose reduction technique was utilized. FINDINGS: Comparison is made to prior exam dated June 05, 2012. The current exam shows no evidence of acute intra- or extraaxial fluid collections. There is no mass effect or midline shift. There is no intraparenchymal hemorrhage. Prominent sulcal pattern is seen diffusely, consistent with age-appropriate atrophic change. There is persistent ex vacuo dilatation of the lateral ventricles. Periventricular white matter changes are noted. The basilar cisterns are within normal limits. The meng-white junction is obscured. Bone windows demonstrate no fracture. The mastoid air cells are clear. IMPRESSION: 1. No acute intracranial hemorrhage or mass. 2. Age-appropriate atrophic and small vessel ischemic change, likely chronic. If clinical concern i s for acute infarct, correlation with diffusion MRI is recommended. 3. Persistent ex vacuo dilatation of the lateral ventricles, most consistent with atrophic involutio nal change. Differential diagnosis would also include normal pressure hydrocephalus. If indicated cli nically, neurology consultation is recommended. Final Electronic Signature: This report was electronically signed by Slava Romero MD on 07/19/2016 2 :54 PM. shumes /
[2016-07-19] MEDS ORDERED: CYCLOBENZAPRINE HCL 10 MG TABLET PO SCH (15:00)
[2016-07-19 17:50] VITALS: BP 125/85; PULSE 83; RESP 18; TEMP 98.1
--- NOTE | 2016-07-19 20:07 | DISCHARGE SUMMARY ---
DATE OF ADMISSION: 07/17/16 DATE OF DISCHARGE: 07/19/16 ATTENDING PHYSICIAN: Nitin Davies MD DIAGNOSES 1. Gastroenteritis with nausea, vomiting, diarrhea and abdominal pain, improved. 2. Muscle contraction headache, severe, improved. 3. Dehydration, resolved. 4. Dementia with agitation. 5. Hypoxia, resolved. HISTORY OF PRESENT ILLNESS: Patient is a 76-year-old male with dementia with associated agitation, who presented with acute onset of nausea, vomiting, diarrhea and abdominal discomfort. He did have a frontal headache but no focal neurological symptoms or nuchal rigidity. No cardiopulmonary symptoms, although he was noted to be hypoxic on admission. D-Dimer was elevated at [address] scan was negative. Please see previously dictated history and physical per Dr. Damon for further details. HOSPITAL COURSE: Patient was admitted with acute gastroenteritis with nausea, vomiting, diarrhea and abdominal pain. By the time the patient was discharged, these symptoms had resolved, and he was able to tolerate clear fluids and bland diet. Note that tolerance of fluids and food fluctuated initially, but then improved by the time of discharge. Abdominal CT scan did not show any serious pathology. In addition, he developed a worsening headache, bifrontal, to the point that he was not eating or drinking and became hypersomnic. Head CT scan did not show any serious pathology. Patient was treated with Ibuprofen and Flexeril, with marked improvement in headache symptoms. By the time he was discharged, he was felt to be sufficiently stable to return home. Head CT scan showed marked atrophy but no intracranial hemorrhage, mass or other serious pathology. Also, patient had significant dementia with agitation, with associated sun downing. Both the certified court/medical interpreter and I have discussed situation extensively with the patient's and patient, and both and patient are aware that we may need to consider a lock-down Alzheimers unit in the future if agitation progresses and worsened. I had an extensive discussion concerning the patient's wifes safety in the home environment, and she has resources with respect to her son and family if needed. She is aware that she can call 911, police, etc., if she is not feeling safe in the home environment. She is currently attending a healthcare network consultant group. DISCHARGE INSTRUCTIONS: Patient may participate in activities as able. He is on regular diet. He will follow up with Dr. Davies on 07/22/16. DISCHARGE MEDICATIONS Tizanidine 4 mg p.o. t.i.d. x5 days. Naproxen 220 mg 2 tabs p.o. b.i.d. with food x5 days then resume PRN. Aspirin 81 mg p.o. daily. Calcium 625 mg p.o. daily. Clonazepam 1 mg p.o. q.h.s. Namenda XR 21 mg p.o. daily. Gabapentin 900 mg p.o. q.a.m., 600mg p.o. q.p.m. and 900 mg p.o. q.h.s. Diphenhydramine 50 mg p.o. q.h.s. Multivitamin 1 tab p.o. daily. Tramadol 50 mg p.o. PRN pain. MTDD
[2016-07-19] MEDS ORDERED: DOCUSATE SODIUM 100 MG CAPSULE PO SCH (21:00)
== END 2016-07-19 18:03 | disposition home or self-care (01) ==
LOC: ER 18:23 → IN 22:33
PROVIDERS: ADMIT Hospitalist; ATTEND Family Medicine
DX: A08.4 Viral intestinal infection, unspecified (principal); E86.0 Dehydration; R09.02 Hypoxemia; F03.91 Unspecified dementia, unspecified severity, with behavioral disturbance; G44.89 Other headache syndrome; F05 Delirium due to known physiological condition; Z79.82 Long term (current) use of aspirin; Z79.899 Other long term (current) drug therapy
CPT/HCPCS: 36415; 70450; 71010; 71275; 80048; 80076; 81001; 82607; 83690; 84443; 85007; 85025; 85027; 85379; 86592; 87040; 93010; 93041; 94640; 96365; 96366; 96374; 99217; 99220; 99226; 99285; E0555; G0378; J0295; J2405; J7030; J7620; Q0169